=== PATIENT | male | born 1965 | race Caucasian/White ===

== ENCOUNTER 2022-09-23 01:39 | Day surgery (SDC) | payer BC, SELFPAY ==
[2022-09-15 15:13] VITALS: BMI 31.6
--- NOTE | 2022-09-15 15:17 | PC.NURSE ---
Report to the Outpatient Waiting Room, entrance under the green pavilion located off [facility], at time 0600 on date 09/23/22. Planned Procedure Time: 0730. Time changes happen often and if your time is changed the preop area will call you the afternoon before. - You and your visitor will be asked to self-screen and do not enter if you have any COVID symptoms. - A mask is optional within the hospital at this time. Patients may have clear liquids (water, carbonated beverages, clear teas, apple juice) until 3 hours prior to surgery with a maximum of 20 ounces. - No food from midnight until time of surgery Take the following medications with a SIP of water the morning of surgery: CLONAZEPAM IF NEEDED DO NOT STOP ANY OF YOUR OTHER PRESCRIPTION MEDICATIONS PRIOR TO SURGERY EXCEPT THE FOLLOWING Medications to discontinue per physician: N/A Date to take last dose: N/A Please no make-up, nail zambian, hairspray, perfume, deodorant, or body powder the day of surgery. No jewelry (including any body piercings) or valuables the day of surgery, leave them at home. Please take a shower or bath the night before, or the morning of, surgery with an antibacterial soap. Wear comfortable, loose fitting clothing. - Jewelry must be removed prior to entering the operating room. Rings and piercings that are not removed may be cut off. - The hospital will not accept responsibility for valuables. - Please leave all valuables, including medications, at home the day of surgery. If you are going home after surgery, a licensed delivery route driver must drive you home. - NO public transportation without another adult if you receive anesthesia. - We recommend that an adult stay with you for 24 hours following discharge. - We also recommend that you do not drive, make important decision, drink alcoholic beverages, or take any drugs that were not prescribed by your health care provider for at least 24 hours after your discharge time. Follow any additional instructions given to you from your surgeon. If you or anyone in your household have experienced Covid symptoms in the past week, please notify your surgeon or the nurse liaison at the phone number below for possible testing. Telephone instructions given to PT - AUSTIN PARKER and asked if any additional questions and then verbalized understanding. Patient advised to call surgeon office or pre surgery nurse liaison [phone] if any additional questions.
--- NOTE | 2022-09-22 13:09 | P.PNAN_ITS ---
Anes - Initial Pre Proc Eval Procedure: Operation Date: 09/23/22 07:30 Proposed Procedures p Debridement of Right Elbow Lateral Epicondyle - Erasmo Houser MD Date/Time: 09/22/22 13:09 Surgeon: Erasmo Houser MD Pre Op Diagnosis: Right lateral epicondylitis Patient Data Age: 56 Gender: M Height: 1.85 m Weight: 108.9 kg Allergies Allergy/AdvReac Type Severity Reaction Status Date / Time No Known Allergies Allergy Verified 09/23/22 06:01 Home Medications Medication Instructions Recorded Confirmed Type clonazepam 0.5 mg tablet 0.25 mg PO QHS 02/06/22 09/15/22 History rosuvastatin 40 mg tablet (Crestor) 40 mg PO DAILY 02/06/22 09/15/22 History Patient hx anesthesia problems: none Family hx anesthesia problems: none Results Review: All pre-operative results and documents have been reviewed as part of the pre- operative evaluation. [facility]LY [facility] Past Medical History Medical History (Updated 09/22/22 @ 13:10 by Negro Grayson DO) Hyperlipidemia ZORA (obstructive sleep apnea) Right lateral epicondylitis Surgical History Surgical History (Updated 09/04/22 @ 08:31 by Erasmo Houser MD) History of Achilles tendon repair History of elbow surgery Debrided left lateral epicondyle 2016 History of knee surgery right knee arthroscopy 2010 History of surgery inspire implant for sleep apnea Family History Family History Mother Diabetes mellitus Heart disease Social History Social History Smoking status: Never smoker Smokeless tobacco user: chewing tobacco Alcohol intake: current Drinks per week: 10 Substance use: never Substance use type: does not use Living arrangements: alone Occupation/Education: occupation 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 Informed Consent: The patient's anesthetic plan and its attendant risks and benefits were discussed with the patient/family/POA. Questions were solicited and answers provided to the satisfaction of the patient/family/POA.
[2022-09-23] VITALS (7 sets, daily range): BP systolic 143–184; BP diastolic 90–106; PULSE 52–73; RESP 13–18; TEMP 36.2–36.9; O2SAT 94–99
[2022-09-23] MEDS: ACETAMINOPHEN 500 MG TABLET 1000 MG PO (06:14)
[2022-09-23] MEDS: LACTATED RINGERS 1,000 ML 30 ML IV CONT (06:27)
[2022-09-23] MEDS: KETOROLAC 15 MG/ML VIAL (*BKC) IV PUSH (06:27)
--- NOTE | 2022-09-23 07:18 | WPDHPUPDATE1 ---
History and Physical Update Update Date/Time: 09/23/22 07:18 History and Physical has been reviewed, including an updated exam of the patient. There are NO changes in the patient's condition. Risks, benefits, and alternatives have been discussed and questions answered. Patient agrees to proceed with procedure.
[2022-09-23] MEDS: ceFAZolin 2 GM/D5W 50 ML 2 GM/50 ML BAG IVPB (07:24)
[2022-09-23] MEDS: BUPIVACAINE/EPINEPHRINE 0.25% 10 ML VIAL INFILTRATE (07:47)
--- NOTE | 2022-09-23 08:16 | P.OP_ITS ---
Procedure Note - Detailed Date of Procedure 09/23/22 Pre-op Diagnosis Right lateral epicondylitis - chronic Post-op Diagnosis Same Procedure Performed debridement right lateral epicondyle with partial epicondylectomy Surgeon Erasmo Houser MD [employer] Luis Antonio Beasley Anesthesia General Description of Procedure The patient was identified site identified. He was taken to the operating room and transferred to the OR table placing him supine taking care to pad her torso and extremities. After general anesthetic induction and intubation a nonsterile tourniquet was placed high in the right arm. Right upper extremity was prepped and draped free in usual sterile fashion. Extremity was exsanguinated and tourniquet was inflated to 250 millimeters mercury remaining up for approximally 20 minutes. A longitudinal incision was made over the common extensor origin right elbow. Subcutaneous tissue was bluntly dissected protecting neurovascular structures. Forearm fascia was released off of the common extensor origin. The tendinous origin was released from the spurred lateral epicondyle. It was divided longitudinally in line with the fibers of the tendon and degenerative tendinous tissue removed. Prominent portion epicondyle was debrided sharply with a rongeur. The wound was irrigated with sterile saline. Tendon edges reapproximated inside set fashion with 4-0 Monocryl. Deeper layers the subcu reapproximated with 4-0 Monocryl. Skin closed with 3-0 V lock and tissue adhesive. Sterile dressing was applied. Tourniquet was released. He tolerated the procedure well. Was awakened, extubated and taken to recovery area in stable condition. There were no known intraoperative complications. Estimated blood loss negligible. He received perioperative antibiotics. Estimated Blood Loss 1 Tourniquet Time 20 Drains No Packing No Pathology None sent Complications No immediate complications Condition Stable Disposition PACU [facility] Billing Surgery - Charge Forward: Surgery Billing ([id number])
[2022-09-23] MEDS: oxyCODONE HCL (*CRX) 5 MG TAB IR PO (09:19)
== END 2022-09-23 09:50 | disposition home or self-care (01) ==
PROVIDERS: PCP Family Medicine; Visit Provider Orthopaedic Surgery
PROC: (CPT 24110; principal; 2022-09-23 07:30)
DX: M77.11 Lateral epicondylitis, right elbow (principal); E78.5 Hyperlipidemia, unspecified; G47.33 Obstructive sleep apnea (adult) (pediatric); E66.9 Obesity, unspecified; Z68.31 Body mass index [BMI] 31.0-31.9, adult
CPT/HCPCS: 24358; A9270; J0690; J1100; J1885; J2250; J2405; J2704; J3010; J7120